=== PATIENT | female | born 1985 | race Caucasian/White ===

== ENCOUNTER 2023-08-31 21:35 | Emergency (ER) | payer OTHER, SELFPAY ==
[2023-08-31 21:43] VITALS: BP 136/84; PULSE 82; RESP 14; TEMP 36.6; O2SAT 99
[2023-08-31 21:45] VITALS: O2SAT 99
[2023-08-31 21:46] VITALS: PULSE 78
--- NOTE | 2023-08-31 21:50 | CRLHL7_ITS ---
For Patients: As a result of the Century Cures Act, medical imaging exams and procedure reports are released immediately into your electronic medical record. You may view this report before your referring provider. If you have questions, please contact your health care provider. INDICATION: Fall, ankle pain. TECHNIQUE: Right ankle 3 views. Permanently recorded images are archived. COMPARISON: None. FINDINGS: No acute fracture or aggressive osseous lesion. Alignment is normal. No joint effusion. The joint spaces are preserved. Mild lateral malleolar soft tissue swelling. IMPRESSION: Mild lateral malleolar soft tissue swelling. No acute fracture. Dictated by Sourav Barnard MD @ 08/31/2023 10:24:42 PM (Electronically Signed)
--- NOTE | 2023-08-31 21:51 | ED.NURSE ---
Ice pack provided.
--- NOTE | 2023-08-31 22:08 | ED.LOWEXIN ---
HPI - Extremity Injury (Lower) General Time Seen by Provider: 22:09 Date Seen: 08/31/23 Chief Complaint: Extremity Pain/Injury, Lower Stated Complaint: R ankle injury Time Seen by Provider: 08/31/23 22:08 Source: patient, family, RN notes reviewed and old records reviewed Mode of arrival: ambulatory Limitations: no limitations History of Present Illness HPI Narrative: 37-year-old female who comes in today with right ankle and leg pain after twisting her ankle playing volleyball this evening. She has pain on the outside of right ankle, has been able to walk. Took Tylenol ibuprofen. No prior injury. Related Data Home Medications Medication Instructions Recorded Confirmed No Known Home Medications 12/05/22 02/22/23 Allergies Allergy/AdvReac Type Severity Reaction Status Date / Time Penicillins Allergy Mild Hives Verified 02/22/23 09:51 PFSH PFSH Social History Smoking Status: Never smoker How often do you have a drink containing alcohol: never AUDIT-C Alcohol total score: 0 Non-prescribed substance use: denies use Exam Narrative: Exam Narrative: General: well nourished , NAD Head: Atraumatic and normocephalic ENT: External ears and external nose are normal Eyes: Conjunctiva clear, pupils are equal reactive, external ocular motions are intact Neck: Full spontaneous range of motion of the neck Lungs: No respiratory distress Musculoskeletal: Swelling of the right lateral malleolus with tenderness over the tip of the malleolus. No joint effusion, warmth, or pain with passive movement. Achilles tendon is palpable along its course, mild calf tenderness. Neurologic: No gross focal neurologic deficits Skin: No rashes Psych: Mood and affect are appropriate Const: Vital Signs, click to edit/add: Vital Signs - 24 hr 08/31/23 21:43 08/31/23 21:45 08/31/23 21:46 Temperature 97.8 F Pulse Rate [Pulse Oximeter] 82 Pulse Rate [Right Dorsalis Pedis] 78 Respiratory Rate 14 Blood Pressure [Ri ght Upper Arm] 136/84 Pulse Oximetry 99 99 Oxygen Delivery Me thod Room Air Course Course ED Course: Patient seen examined, prior records are reviewed. Patient presents today with right ankle pain after twisting her ankle playing volleyball. Suspect sprain but as she has tenderness over the tip of the lateral malleolus, x-rays ordered. Patient is taking Tylenol and ibuprofen is agreeable to trying something little stronger. Reevaluation(s) Time of Reevaluation #1: 22:15 Reevaluation #1: Right ankle x-ray independently interpreted by me does not demonstrate any acute fracture or effusion. Patient stable for discharge. Vital Signs Vital signs: Initial Vital Signs Temperature 97.8 F 08/31/23 21:43 Temperature Source Temporal Artery Scan 08/31/23 21:43 Pulse Rate 82 08/31/23 21:43 Respiratory Rate 14 08/31/23 21:43 Blood Pressure 136/84 08/31/23 21:43 Blood Pressure Mean 101 08/31/23 21:43 Blood Pressure Position Sitting 08/31/23 21:43 Pulse Oximetry 99 08/31/23 21:43 Oxygen Delivery Method Room Air 08/31/23 21:43 Vital Signs Temperature 97.8 F 08/31/23 21:43 Pulse Rate 82 08/31/23 21:43 Respiratory Rate 14 08/31/23 21:43 Blood Pressure 136/84 08/31/23 21:43 Pulse Oximetry 99 08/31/23 21:43 Oxygen Delivery Method Room Air 08/31/23 21:43 Temperature 97.8 F 08/31/23 21:43 Pulse Rate 78 08/31/23 21:46 Respiratory Rate 14 08/31/23 21:43 Blood Pressure 136/84 08/31/23 21:43 Pulse Oximetry 99 08/31/23 21:45 Oxygen Delivery Method Room Air 08/31/23 21:43 Discharge Plan Discharge Clinical Impression: Ankle sprain Patient Disposition: Home, Self-Care Condition: Stable Instructions: Ankle Sprain (DC) Additional Instructions: Tylenol and ibuprofen as needed for pain. Oxycodone as needed for severe pain. Walking boot and crutches, weight-bearing as tolerated. Activity Level: Weight Bearing as Tolerated Prescriptions: No Action No Known Home Medications Follow Up/Referrals: Provider,Not a Local [Primary Care Provider] - Stand Alone Forms: [employer] Info Instructions
[2023-08-31] MEDS: OXYCODONE 5 MG TABLET PO (22:19)
[2023-08-31 22:49] VITALS: BP 125/78; PULSE 79; RESP 14; TEMP 36.7; O2SAT 99
[2023-08-31 22:51] VITALS: BP 125/78; PULSE 79; RESP 14; TEMP 36.7
== END 2023-08-31 22:51 | disposition home or self-care (01) ==
PROVIDERS: Emergency Provider Family Medicine
DX: S93.401A Sprain of unspecified ligament of right ankle, initial encounter (principal); X58.XXXA Exposure to other specified factors, initial encounter; Y93.68 Activity, volleyball (beach) (court)
CPT/HCPCS: 73610; 94761; 99283; A9270

== ENCOUNTER 2023-12-07 16:21 | Outpatient (CLI) | payer OTHER, SELFPAY | END 2023-12-07 16:22 | disposition home or self-care (01) | PROVIDERS: Visit Provider Registered Nurse | DX: Z01.419 Encounter for gynecological examination (general) (routine) without abnormal findings (principal); R63.5 Abnormal weight gain; R53.83 Other fatigue; Z13.6 Encounter for screening for cardiovascular disorders; Z13.29 Encounter for screening for other suspected endocrine disorder | CPT/HCPCS: 80061; 82306; 82947; 84443 ==

== ENCOUNTER 2024-02-27 09:05 | Outpatient (CLI) | payer OTHER, SELFPAY ==
--- NOTE | 2024-02-27 09:15 | MM_ITS ---
Patient: JEAN GARCIA Facility:?[facility] Patient ID:?[id number] Site Patient ID:?[id number]. Site :?[id number] Study:?XRay-Breast Bilateral 3D W/CAD-02/27/2024 9:27:41 AM Ordering Physician:Lyric Final Report: BILATERAL SCREENING MAMMOGRAM WITH COMPUTER-AIDED DETECTION AND TOMOSYNTHESIS TECHNIQUE: CC and MLO views were obtained. These mammographic images have been obtained using full-field digital technique. These mammographic images were interpreted with the benefit of computer-aided detection. Breast Tomosynthesis was used in this interpretation. COMPARISON FILM: 02/14/19 (right only). FINDINGS: There are scattered areas of fibroglandular density IMPRESSION: There is no radiographic evidence for malignancy. ASSESSMENT: BI-RADS Category 1: Negative RECOMMENDATION: Routine screening mammogram in 1 year. A lay language report of this examination will be provided to the patient. Jet Tapia M.D. Diagnostic Radiologist [email or web address] Transcribed: 1:50 p.mBecky granados/Dictated by: Jet Tapia MD @ 02/28/2024 11:10:00 AM Signed by:?Jet Tapia MD @02/28/2024 1:52:32 PM (Electronic Signature)
== END 2024-02-27 09:06 | disposition home or self-care (01) ==
LOC: MAMMO 09:05
PROVIDERS: Visit Provider Registered Nurse
DX: Z12.31 Encounter for screening mammogram for malignant neoplasm of breast (principal)
CPT/HCPCS: 77063; 77067

== ENCOUNTER 2025-02-14 15:30 | Outpatient (CLI) | payer OTHER, SELFPAY | END 2025-02-14 15:31 | disposition home or self-care (01) | LOC: FRMREF 15:31 | PROVIDERS: Visit Provider Registered Nurse | DX: N92.0 Excessive and frequent menstruation with regular cycle (principal) | CPT/HCPCS: 84443 ==

== ENCOUNTER 2025-02-20 16:31 | Outpatient (CLI) | payer OTHER, SELFPAY ==
--- NOTE | 2025-02-20 16:45 | CRLHL7_ITS ---
For Patients: As a result of the Century Cures Act, medical imaging exams and procedure reports are released immediately into your electronic medical record. You may view this report before your referring provider. If you have questions, please contact your health care provider. INDICATION: Excessive and frequent menstruation TECHNIQUE: Transabdominal and transvaginal scanning was performed. Transvaginal scanning was performed to optimally evaluate the endometrium and adnexa. Ovarian blood flow was evaluated with color-flow and pulsed Doppler. COMPARISON: Pelvic ultrasound of 11/06/2021 FINDINGS: The uterus is mildly enlarged, measuring 8.6 x 5.3 x 5.9 cm. No myometrial mass is evident. The endometrial stripe is thickened to 17 mm. Apparent hemorrhagic cyst measuring 2.1 x 1.7 x 1.4 cm is demonstrated in the left ovary. The right ovary measures 3.2 x 2.5 x 2.2 cm and left 4.4 x 2.7 x 2.6 cm. Ovarian blood flow is demonstrated with color-flow and pulsed Doppler. No adnexal mass is evident. A small amount of physiologic free fluid is noted. IMPRESSION: 1. Mildly enlarged uterus and mildly thickened endometrial stripe at 17 mm. 2. Apparent hemorrhagic left ovarian cyst measuring up to 2.1 cm in diameter. Dictated by Adam John MD @ 02/21/2025 4:02:08 PM (Electronically Signed)
== END 2025-02-20 16:32 | disposition home or self-care (01) ==
LOC: US 16:31
PROVIDERS: Visit Provider Registered Nurse
DX: N92.0 Excessive and frequent menstruation with regular cycle (principal); Q51.9 Congenital malformation of uterus and cervix, unspecified; N83.202 Unspecified ovarian cyst, left side
CPT/HCPCS: 76830; 76856

== ENCOUNTER 2025-04-26 09:12 | Outpatient (CLI) | payer OTHER, SELFPAY ==
--- NOTE | 2025-04-26 09:15 | CRLHL7_ITS ---
For Patients: As a result of the Cures Act, medical imaging exams and procedure reports are released immediately into your electronic medical record. You may view this report before your referring provider. If you have questions, please contact your health care provider. INDICATION: BILATERAL SCREENING MAMMOGRAM, ASYMPTOMATIC 39 Y/O FEMALE COMPARISON: 02/27/2024 TECHNIQUE: Digital mammogram in CC and MLO projections including computer-aided detection (CAD) and tomosynthesis. BREAST COMPOSITION: There are scattered areas of fibroglandular density. FINDINGS: No suspicious findings. ASSESSMENT: BI-RADS 2 Benign RECOMMENDATION: Annual screening mammogram. A lay language report of this examination will be provided to the patient. Dictated by: Jet Tapia MD @ 04/26/2025 12:30:23 (Electronically Signed)
== END 2025-04-26 09:13 | disposition home or self-care (01) ==
LOC: MAMMO 09:12
PROVIDERS: Visit Provider Registered Nurse
DX: Z12.31 Encounter for screening mammogram for malignant neoplasm of breast (principal)
CPT/HCPCS: 77063; 77067